=== PATIENT | female | born 1980 | race Caucasian/White ===

== ENCOUNTER 2022-02-22 17:26 | Emergency (ER) | payer BC ==
[2022-02-22 17:38] VITALS: BP 138/90
--- NOTE | 2022-02-22 17:58 | XRAY Report ---
PROCEDURE: Chest 1 View X-Ray INDICATIONS: Right-sided chest pain TECHNIQUE: One view of the chest was acquired. COMPARISON: None. FINDINGS: Surgical changes and devices: None. Lungs and pleura: No pleural effusions or pneumothorax. Lungs are clear. Mediastinum: Mediastinal contours appear normal. Heart size is normal. Bones and chest wall: No suspicious bony lesions. Overlying soft tissues appear unremarkable. IMPRESSION: No acute cardiopulmonary process demonstrated radiographically. Reviewed by: Maulik Sahu MD on 02/22/2022 5:57 PM PDT Approved by: Maulik Sahu MD on 02/22/2022 5:57 PM PDT Station ID: [id number]
[2022-02-22] MEDS ORDERED: DOXYCYCLINE 100 MG TABLET PO STA (18:13)
[2022-02-22] MEDS ORDERED: HYDROcod/ACETAM 5/325 MG TABLET PO STA (18:14)
--- NOTE | 2022-02-22 18:14 | ED Physician Documentation ---
PD HPI CHEST PAIN - Stated complaint Stated Complaint: CONGESTION - Chief complaint Chief Complaint: Resp - History obtained from History obtained from: Patient - Additional information Additional information: 41-year-old woman with history of tobacco use is visiting from [place] and has been coughing for 3 weeks. Productive of yellow sputum. Now for the last 4 days has had sharp right posterior chest pain with the cough. It also is worse with bending and twisting. No fevers. She is mildly short of breath. No pedal edema or calf pain. Review of Systems Constitutional: denies: Fever, Chills Nose: denies: Rhinorrhea / runny nose, Congestion Respiratory: reports: Cough GI: denies: Abdominal Pain PD PAST MEDICAL HISTORY - Present Medications Home Medications: Ambulatory Orders Medication Instructions Recorded Confirmed Doxycycline Hyclate 100 mg PO BID #14 tab.sr 02/22/22 HYDROcod/ACETAM 5/325 [[place] 5/325] 1 - 2 tab PO Q6H PRN #15 tablet 02/22/22 - Allergies Allergies/Adverse Reactions: Allergies Allergy/AdvReac Type Severity Reaction Status Date / Time No Known Drug Allergies Allergy Verified 02/22/22 17:38 PD ED PE NORMAL - Vitals Vital signs reviewed: Yes - General General: Alert and oriented X 3, No acute distress - HEENT HEENT: Pharynx benign - Cardiac Cardiac: RRR, No murmur - Respiratory Respiratory: Other (She is comfortable but winces with coughing. No abnormal respiratory activity. She is tender to the right posterolateral ribs in the posterior axillary line no abdominal or flank tenderness. Lungs are clear.) - Back Back: No CVA TTP, No spinal TTP - Extremities Extremities: No edema, No calf tenderness / cord - Neuro Neuro: Alert and oriented X 3, Normal speech Results - Vitals Vitals: Vital Signs - 24 hr 02/22/22 17:34 Temperature 37.2 C Heart Rate 97 Respiratory 14 Rate Blood Pressure 138/90 H O2 Saturation 97 Oxygen O2 Source Room air PD MEDICAL DECISION MAKING - ED course ED course: Given the timeframe, 3 weeks, also she is had a biphasic illness reasonable to trial antibiotics but she also needs something for pain for the chest wall related to coughing. PE and other more serious diagnoses are considered but considered very unlikely given the above history and exam. Departure - Departure Disposition: 01 Home, Self Care Clinical Impression: Bronchitis, Chest wall muscle strain Condition: Good Record reviewed to determine appropriate education?: Yes Instructions: ED Upper Resp Infec Abx Tx Prescriptions: Doxycycline Hyclate 100 mg PO BID #14 tab.sr HYDROcod/ACETAM 5/325 [[place] 5/325] 1 - 2 tab PO Q6H PRN #15 tablet PRN Reason: Pain Comments: I sent your prescription to the [facility] pharmacy at the corner of [address] here in [place]. You have a Covid test pending. You need to self quarantine until the result is done and negative. Do not leave your house. Do not get near anybody. The results should be done in 48 to 72 hours. We will call with a positive result, the fastest way to get a negative result for confirmation though is to go to the hospital website at [email or web address], click on the my [facility] tab and sign up for the patient portal. If any friends or family get sick and would like to have a Covid test done, but do not have signs or symptoms that would necessitate being hospitalized, there are multiple local options for Covid testing. [facility] keeps an updated list of testing and vaccination options at: [email or web address]. Call your doctor to arrange a follow-up appointment, make the next available appointment. In the interim, return anytime if worse or if new symptoms develop. I am prescribing a short course of narcotic pain medication for you. These are potentially dangerous and addictive medications that should be used carefully. These medications may constipate you. Take an bvnk-des-snaxsyt stool softener (docusate) twice daily with plenty of water while taking these medications. If you go 24 hours without a bowel movement, take jdln-rhk-[id number] miralax, per package instructions. Do not drink or drive while taking these medications. If you received narcotic or sedating medications while in the emergency department, do not drive for 24 hours. Store this medication in a safe, secure place and out of reach of children. It is a violation of federal law to give or sell this medication to another person or to use in a manner other than prescribed. The ED will not refill narcotic prescriptions, including prescriptions lost or stolen. To dispose of unwanted medications: 1. [facility] at [address] in [place] has a medication drop box. They accept prescription medications (in pill form) Tuesday through Tuesday 9:00 a.m. to 5:00 p.m. 2. [facility] accepts prescription medications (in pill form only) for disposal year round. Call for more information. 3. Contact the [facility] for the next [facility] sponsored prescription drug collection event. , [phone], or x7310; Note that many narcotic pain relievers also contain Tylenol/acetaminophen. Please ensure that your total dose of acetaminophen from all sources does not exceed 3 g (3000 mg) per day. Discharge Date/Time: 02/22/22 18:25
== END 2022-02-22 18:25 | disposition home or self-care (01) ==
LOC: EDBD → ED 17:26
DX: J40 Bronchitis, not specified as acute or chronic (principal); S29.011A Strain of muscle and tendon of front wall of thorax, initial encounter; X58.XXXA Exposure to other specified factors, initial encounter; Z20.822 Contact with and (suspected) exposure to COVID-19
CPT/HCPCS: 71045; 87635; 99282; 99284; A9270

== ENCOUNTER 2023-02-02 08:00 | Outpatient (CLI) | payer BC ==
[2023-02-02 20:36] LABS: BASOPHILS % (AUTO) 0.5 %; EOSINOPHILS # (AUTO) 0.1 10^3/uL (0.0-0.7); EOSINOPHILS % (AUTO) 1.1 %; HCT - HEMATOCRIT 39.1 % (37.0-47.0); HGB - HEMOGLOBIN 12.6 g/dL (12.0-16.0); LYMPHOCYTES % (AUTO) 35.5 %; MEAN CORPUSCULAR HEMOGLOBIN 33.1 pg (27.0-31.0); MEAN CORPUSCULAR HGB CONC 32.2 g/dL (32.0-36.0); MEAN CORPUSCULAR VOLUME 102.6 fL (81.0-99.0); MEAN PLATELET VOLUME 10.6 fL (7.9-10.8); MONOCYTES # (AUTO) 0.9 10^3/uL (0.0-1.0); MONOCYTES % (AUTO) 10.3 %; NEUTROPHILS # (AUTO) 4.5 10^3/uL (1.5-6.6); NEUTROPHILS % (AUTO) 52.4 %; PLT - PLATELET COUNT 205 10^3/uL (130-450); RED BLOOD COUNT 3.81 10^6/uL (4.20-5.40); RED CELL DISTRIBUTION WIDTH 12.6 % (12.0-15.0); WHITE BLOOD COUNT 8.5 x10^3/uL (4.8-10.8)
== END 2023-02-02 23:59 | disposition home or self-care (01) ==
LOC: LAB.N 08:00
PROVIDERS: ATTEND Registered Nurse
DX: N94.6 Dysmenorrhea, unspecified (principal); R53.83 Other fatigue
CPT/HCPCS: 36415; 85025

== ENCOUNTER 2023-05-28 15:33 | Emergency (ER) | payer BC, MEDICAID ==
[2023-05-28 15:59] VITALS: BP 154/96; O2SAT 98
--- NOTE | 2023-05-28 16:07 | ED Physician Documentation ---
History of Present Illness - Stated complaint Stated Complaint: BREAST PX - Chief complaint Chief Complaint: General - History obtained from History obtained from: Patient - Additonal information Additional information: Patient is a 42-year-old female presenting for evaluation of lumps felt in bilateral breast. Patient states that she initially felt 1 in March on the left breast and saw PCP in [facility] who ordered an outpatient ultrasound. Unfortunately she has not been able to get an ultrasound appointment at the recommended facility until July. Over the past several weeks she has also noticed 2 lumps in the right breast that were not there previously. She is also noted a 50 pound weight loss since March that is unintentional. No fevers. She has never had a mammogram. Denies a family history of breast cancer. Review of Systems Constitutional: denies: Fever Cardiac: denies: Chest pain / pressure Respiratory: denies: Dyspnea GI: denies: Abdominal Pain PD PAST MEDICAL HISTORY - Present Medications Home Medications: Ambulatory Orders Medication Instructions Recorded Confirmed No Known Home Medications 05/28/23 05/28/23 - Allergies Allergies/Adverse Reactions: Allergies Allergy/AdvReac Type Severity Reaction Status Date / Time No Known Drug Allergies Allergy Verified 02/22/22 17:38 PD ED PE NORMAL - General General: Alert and oriented X 3, No acute distress, Well developed/nourished - HEENT HEENT: Atraumatic - Neck Neck: Supple, no meningeal sign - Cardiac Cardiac: RRR, Strong equal pulses - Respiratory Respiratory: No respiratory distress, Clear bilaterally - Derm Derm: Warm and dry - Neuro Neuro: Normal speech - Free text exam Free text exam: Breast exam: Breasts appear symmetric with no Visible abnormalities, no redness, no fluctuance, Cystic changes versus mass felt in bilateral Lateral breast with no firm nodularities palpated. Results - Vitals Vitals: Vital Signs - 24 hr 05/28/23 15:50 Temperature 37.1 C Heart Rate 93 Respiratory 20 Rate Blood Pressure 154/96 H O2 Saturation 98 Oxygen O2 Source Room air PD Medical Decision Making - ED course Complexity details: d/w patient ED course: Patient is a 42-year-old female presenting for evaluation of breast irregularities felt bilaterally for the past several months and having difficulty and obtaining outpatient ultrasound. No reported trauma. No clinical symptoms to suggest infection. As such I am not able to order an emergent ultrasound of the breast. It I did advise the patient that she does not need a physician's order for a mammogram and that she is able to schedule that with the hospital imaging department directly. I also encouraged her to call on Tuesday for both a mammogram appointment as well as for the ultrasound that her PCP had ordered to see if she can get it done here sooner. Again she understands that she can schedule a mammogram on her own here or at other area hospitals. Understands importance of close follow-up with primary care provider. Patient counseled on concerning symptoms to return for. Departure - Departure Disposition: 01 Home, Self Care Condition: Stable Instructions: ED Breast Mass Uncertain Cause Comments: Please call the numbers below to schedule your mammogram. You may also be able to schedule your outpatient ultrasound through our system by calling the below number. You do not need a physician's order for a mammogram. I would also leonie mmend close follow-up with your primary care provider. Ultrasound currently offering 24/7 Mammography Tuesday-Tuesday 8 a.m to 4:30 p.m. To schedule an appointment at the [facility] call Central Scheduling Services: [phone]. Forms: PCP List Discharge Date/Time: 05/28/23 16:40
== END 2023-05-28 16:40 | disposition home or self-care (01) ==
LOC: ED 15:33
DX: N63.20 Unspecified lump in the left breast, unspecified quadrant (principal); N63.10 Unspecified lump in the right breast, unspecified quadrant
CPT/HCPCS: 99281; 99283